=== PATIENT | female | born 1955 | race Caucasian/White ===

== ENCOUNTER → 2017-04-01 | Outpatient (CLI) | payer BC ==
[~2017-04-01] MED LIST: ALBUTEROL2 PUFFS/17 IN; AMBIEN 10MG TAB10 MG PO; ASPIRIN 81MG TA81 MG PO; CLONAZEPAM0.5 M1 PO; CLONIDINE0.3 MG PO; DOXYCYCLINE100 M1 PO; HCTZ/LISINOPRIL1 TA3 PO; LEVOTHYROXINE0.05 M2 PO; LEXAPRO 10 MG T10 MG PO; MOBIC15 MG PO; NEXIUM20 MG PO; NORTRIPTYLINE H10 M1 PO; NYSTATIN SU60 ML/BOT PO; PHENERGAN W/CO473 ML PO; PRILOSEC OTC20 MG PO; VERELAN360 MG PO
== END ==
LOC: RT 15:15
DX: G47.33 Obstructive sleep apnea (adult) (pediatric) (principal)